=== PATIENT | female | born 1960 | race African-American/Black ===

== ENCOUNTER → 2017-12-27 | Outpatient (CLI) | payer OTHER | END | disposition home or self-care (01) | LOC: KCIC MAMMO 12:21 | DX: Z12.31 Encounter for screening mammogram for malignant neoplasm of breast (principal); I10 Essential (primary) hypertension | CPT/HCPCS: 77067 ==

== ENCOUNTER → 2019-03-12 | Outpatient (CLI) | payer OTHER ==
[2014-05-12 10:00] VITALS: BP 179/86
--- NOTE | 2019-03-13 09:32 | KCIC ---
BILATERAL SCREENING MAMMOGRAM History: Routine screening. Comparison: Bilateral mammogram December 27, 2017 and dating back to 2011. Bilateral breast ultrasound February 09, 2016. Technique: Routine bilateral digital mammogram views were obtained. Findings: Breast Tissue Density C : The breasts are heterogeneously dense, which may obscure small masses. Masses in the left breast, noted to be cysts on prior ultrasound, are not significantly changed. There are no suspicious microcalcifications or architectural distortion. IMPRESSION: No mammographic evidence of malignancy. Recommend routine screening. BI-RADS category 2: Benign findings. The images were reviewed with computer aided detection. Patient information is entered into the reminder system with a target due date for the next screening mammogram. Mammography is the most sensitive method for finding small breast cancers, but it does not detect them all and is not a substitute for careful clinical examination. A negative mammogram does not negate a clinically suspicious finding and should not result in delay in biopsying a clinically suspicious abnormality. "Our facility is accredited by the [employer] Mammography Program." Electronically signed by: Genaro Mazariegos MD (03/13/2019 9:29 AM) [id number]
== END | disposition home or self-care (01) ==
LOC: KCIC MAMMO 14:40
PROVIDERS: ATTEND Internal Medicine
DX: Z12.31 Encounter for screening mammogram for malignant neoplasm of breast (principal)
CPT/HCPCS: 77067